=== PATIENT | female | born 1975 | race Caucasian/White ===

== ENCOUNTER 2021-08-26 14:19 | Emergency (ER) | payer SELFPAY ==
[~2021-08-26] VITALS: Ht 157.5 cm; Wt 64.1 kg
[2021-08-26] MEDS ORDERED: FLEXERIL 1010 MG/TAB PO (18:43)
[2021-08-26 19:11] VITALS: BP 104/67; PULSE 57
== END 2021-08-26 19:09 | disposition home or self-care (01) ==
LOC: COL.ER 14:19
DX: M25.511 Pain in right shoulder (principal); X50.1XXA Overexertion from prolonged static or awkward postures, initial encounter; Y93.89 Activity, other specified; Y92.59 Other trade areas as the place of occurrence of the external cause; Y99.0 Civilian activity done for income or pay
CPT/HCPCS: J1885; J2360

== ENCOUNTER 2024-01-14 14:49 | Emergency (ER) | payer SELFPAY ==
[~2024-01-14] VITALS: Ht 157.5 cm; Wt 69.1 kg
[~2024-01-14 14:49] MED LIST: FLEXERIL 1010 MG/TAB PO; PREDNISONE20 MG PO; TESSALON P100 MG/CAP PO
[2024-01-14 14:57] VITALS: TEMP 97.6
[2024-01-14] MEDS ORDERED: TRIAMCINOLONE A15 G1 TP (15:07)
[2024-01-14 15:26] VITALS: BP 120/74; PULSE 88
== END 2024-01-14 15:26 | disposition home or self-care (01) ==
LOC: COL.ER 14:49
DX: S50.861A Insect bite (nonvenomous) of right forearm, initial encounter (principal); S20.469A Insect bite (nonvenomous) of unspecified back wall of thorax, initial encounter; W57.XXXA Bitten or stung by nonvenomous insect and other nonvenomous arthropods, initial encounter

== ENCOUNTER → 2024-03-25 | Outpatient (CLI) | payer SELFPAY ==
[~2024-03-25] MED LIST changes: +TRIAMCINOLONE A15 G1 TP
[2024-03-27 19:00] LABS: HCG SERUM, QUANTITATIVE (BETA) <5 mIU/mL (())
[2024-03-27 19:19] LABS: ESTRADIOL 25 pg/mL (()); FOLLICLE STIMULATING HORMONE 14.7 mIU/mL (())
== END ==
LOC: COL.RAD 15:48
DX: Z31.83 Encounter for assisted reproductive fertility procedure cycle (principal)

== ENCOUNTER → 2024-04-11 | Outpatient (CLI) | payer SELFPAY | LOC: COL.RAD 11:00 | PROVIDERS: Obstetrics & Gynecology Reproductive Endocrinology | DX: Z31.83 Encounter for assisted reproductive fertility procedure cycle (principal); N83.01 Follicular cyst of right ovary; R93.89 Abnormal findings on diagnostic imaging of other specified body structures ==